=== PATIENT | female | born 1935 | race Asian ===

== ENCOUNTER 2021-12-17 15:55 | Emergency (ER) | payer MEDICARE, MEDICAID, SELFPAY ==
[~2021-12-17] VITALS: Ht 147.3 cm; Wt 49.9 kg
[2021-12-17 16:04] VITALS: BP_SYST 120
--- NOTE | 2021-12-17 16:08 | NUR ---
Patient to ER bed to gown for evaluation. Side rails up. Report given to BEAU Vuong
--- NOTE | 2021-12-17 16:18 | NUR ---
DANILO Drew at bedside examining patient.
[2021-12-17] MEDS ORDERED: MECLIZINE HCL 25 MG TABLET (ANITVERT) PO ONE ×2 (16:30→18:00)
--- NOTE | 2021-12-17 16:42 | NUR ---
Patient transported to radiology via gurney, accompanied by staff.
--- NOTE | 2021-12-17 17:11 | NUR ---
pt. refused meclizine, stating has bad reactions to medications
--- NOTE | 2021-12-17 17:33 | NUR ---
pt. was incontinent of stool, chirag care done, linens changed, pt. assisted OOB to commode and was able to void
--- NOTE | 2021-12-17 17:33 | NUR ---
family at bedside
--- NOTE | 2021-12-17 17:55 | NUR ---
pt. has had urge to void was incontinent, then voided small amount on bedside commode, had urge again did in/out cath to obtain clean UA
--- NOTE | 2021-12-17 17:58 | NUR ---
pt. agreed to take 1 tab of meclizine order for 25 mg. red'd
[2021-12-17 18:29] LABS: BASOPHILS % (AUTO) 0.8 % (0.0-2.0); EOSINOPHILS % (AUTO) 0.6 % (0.0-4.0); HEMATOCRIT 37.4 % (36-48); HEMOGLOBIN 12.5 g/dL (12.0-16.0); LYMPHOCYTES # (AUTO) 0.8 K/uL (1.0-5.5); LYMPHOCYTES % (AUTO) 12.9 % (20.5-51.5); MEAN CORPUSCULAR HEMOGLOBIN 32 pg (27-31); MEAN CORPUSCULAR HGB CONC 34 % (32-36); MEAN CORPUSCULAR VOLUME 96 fL (79.0-98.0); MONOCYTES # (AUTO) 0.2 K/uL (0.0-1.0); MONOCYTES % (AUTO) 3.2 % (1.7-9.3); NEUTROPHILS # (AUTO) 5.1 K/uL (1.8-7.7); NEUTROPHILS % (AUTO) 82.5 % (40.0-70.0); PLATELET COUNT (AUTO) 200 K/uL (130-430); RED BLOOD CELL COUNT(AUTO) 3.91 MIL/uL (4.2-6.2); WHITE BLOOD COUNT (AUTO) 6.2 K/uL (4.8-10.8)
[2021-12-17 18:31] LABS: ANION GAP 14 (5-15); CALCIUM 9.4 mg/dL (8.4-11.0); CHLORIDE 103 mmol/L (98-107); CREATININE 1.52 mg/dL (0.55-1.30); GLUCOSE 150 mg/dL (70-99); POTASSIUM 4.9 mmol/L (3.5-5.1); SODIUM SERUM 139 mmol/L (136-145); UREA NITROGEN, BLOOD 37 mg/dL (8-21)
[2021-12-17 18:49] LABS: INR 0.9 (0.8-1.2); PROTHROMBIN TIME 9.4 SECS (9.5-12.5)
[2021-12-17 18:53] LABS: ALANINE AMINOTRANSFERASE 26 U/L (12-78); ALBUMIN 4.3 g/dL (3.4-4.8); ASPARTATE AMINOTRANSFERASE 32 U/L (10-37); TOTAL BILIRUBIN 0.3 mg/dL (0.0-1.0)
[2021-12-17 19:01] LABS: ALCOHOL, BLOOD < 3 mg/dL (<10)
--- NOTE | 2021-12-17 19:13 | NUR ---
report to Chanel
[2021-12-17 19:54] LABS: BILIRUBIN,URINE NEGATIVE (NEGATIVE); BLOOD, URINE NEGATIVE (NEGATIVE); CLARITY/URINE CLEAR (CLEAR); COLOR,URINE YELLOW (YELLOW); GLUCOSE,URINE NEGATIVE (NEGATIVE); KETONES,URINE NEGATIVE (NEGATIVE); LEUKOCYTE ESTERASE ,URINE NEGATIVE (NEGATIVE); NITRITE, URINE NEGATIVE (NEGATIVE); PROTEIN URINE 1+ (NEGATIVE); UROBILINOGEN,URINE 0.2 (0.2-1.0)
[2021-12-17 20:17] LABS: BARBITURATE, URINE NEGATIVE (NEG <=200); BENZODIAZEPINE, URINE NEGATIVE (NEG <=150); CANNABINOID, URINE NEGATIVE (NEG <=50); COCAINE, URINE NEGATIVE (NEG <=150); METHAMPHETAMINES SCREEN,URINE NEGATIVE (NEG <=500); OPIATE, URINE NEGATIVE (NEG <=100); PHENCYCLIDINE SCREEN,URINE NEGATIVE (NEG <=25); UR TRICYCLIC ANTIDEPRESSANTS NEGATIVE (NEG <=300); URINE AMPHETAMINE NEGATIVE (NEG <=500); URINE METHADONE NEGATIVE (NEG <=200); URINE OXYCODONE SCREEN NEGATIVE (NEG <=100); URINE PROPOXYPHENE SCREEN NEGATIVE (NEG <=300)
[2021-12-17 21:09] LABS: BACTERIA,URINE RARE /HPF (None Seen); MUCUS,URINE None Seen /LPF (None Seen); RBC,URINE NONE SEEN /HPF (0-3); WBC,URINE 0-3 /HPF (0-3)
--- NOTE | 2021-12-17 21:31 | NUR ---
Pt ambulated by RN in . Pt tolerated well with moderate assist. Daughter concerned about distance without walker. Pt uses walker at home.
[2021-12-17] MEDS ORDERED: MECL-160 PO (22:55)
--- NOTE | 2021-12-17 23:10 | NUR ---
Patient given written and verbal discharge instructions and verbalizes understanding. ER MD discussed with patient the results and treatment provided. Patient in stable condition. ID arm band removed. IV catheter removed intact and dressing applied, no active bleeding. Rx of Meclizine given. Patient educated on pain management and to follow up with PMD. Pain Scale 0/10. Opportunity for questions provided and answered. Medication side effect fact sheet provided.
[2021-12-17 23:11] VITALS: BP_SYST 139
--- NOTE | 2021-12-17 23:21 | NUR ---
Note undmiguel ángel in EDM - 12/17/21 at 2321 by [email or web address] Patient given written and verbal discharge instructions and verbalizes understanding. ER discussed with patient the results and treatment provided. Patient in stable condition. ID arm band removed. IV catheter removed intact and dressing applied, no active bleeding. Rx of Meclizine given. Patient educated on pain management and to follow up with PMD. Pain Scale 0/10. Opportunity for questions provided and answered. Medication side effect fact sheet provided.
== END 2021-12-17 23:11 | disposition home or self-care (01) ==
LOC: SED 15:55
DX: H81.10 Benign paroxysmal vertigo, unspecified ear (principal); E11.9 Type 2 diabetes mellitus without complications; E78.00 Pure hypercholesterolemia, unspecified; Z88.0 Allergy status to penicillin; Z79.899 Other long term (current) drug therapy
CPT/HCPCS: 36415; 70450; 71045; 76376; 80053; 80307; 81000; 83605; 84484; 85025; 85610; 85730; 87040; 93005; 99285; G0481; G0482; J8597